=== PATIENT | female | born 1990 | race Caucasian/White ===

== ENCOUNTER 2023-11-08 06:18 | Emergency (ER) | payer OTHER, SELFPAY ==
[2023-11-08 06:40] VITALS: BP 137/79; PULSE 117; RESP 20; TEMP 38; O2SAT 96; BMI 31.6
--- NOTE | 2023-11-08 07:11 | ED.URI ---
HPI - URI/Sore Throat General Chief Complaint: Upper Respiratory Symptoms Stated Complaint: fever, red eyes, coughing Time Seen by Provider: 11/08/23 07:08 Source: patient and family Mode of arrival: ambulatory Limitations: no limitations History of Present Illness HPI Narrative: This is a 33-year-old female presenting to the emergency department nonproductive cough, fatigue, malaise, fevers, chills? x3 days. Chest discomfort w/ cough only described as pressure.? Patient has multiple known sick contacts including children and has also been exposed to RSV.? Patient wanted to come in and get checked for RSV. Denies shortness of breath headache, vision changes, dizziness, weakness, nausea, vomiting, diarrhea, abdominal pain, shortness of breath Related Data Allergies Allergy/AdvReac Type Severity Reaction Status Date / Time sulfamethoxazole Allergy Unknown RASH Verified 11/08/23 06:39 [From BACTRIM] trimethoprim [From BACTRIM] Allergy Unknown RASH Verified 11/08/23 06:39 Review of Systems Review of Systems: Constitutional : No Weight loss, + Fever, + Chills, + Fatigue, + Malaise ENT/Mouth : No sore throat, No Rhinorrhea Eyes: No Eye Pain, No Swelling, No Redness Cardiovascular : + Chest Pain, No SOB, No Dyspnea on Exertion, No Orthopnea, No Edema, No Palpitations Respiratory : + Cough, No Sputum, No Wheezing Gastrointestinal : No Nausea, No Vomiting, No Diarrhea, No Constipation, No abdominal Pain, No Hematochezia, No Melena Genitourinary : No Dysuria, No Urinary Frequency, No Hematuria, Musculoskeletal : No joint pain, + Myalgias, No Joint Swelling Skin : No Skin Lesions, No rash Neuro : No Weakness, No Numbness, No Dizziness, No Headache Psych : No Anxiety/Panic, No Depression All other systems reviewed and are negative Yes all other systems are reviewed and are negative [facility] Past Medical History Attestation statement: The following information was validated with the patient. Source: old records reviewed and nursing notes reviewed Social History Social History Advance Directives: No Advance Directives Information Provided: No Physical Exam Vital Signs: Vital Signs: Last Vital Signs Temp 100.4 F 11/08/23 06:40 Pulse 117 H 11/08/23 06:40 Resp 20 11/08/23 06:40 BP 137/79 11/08/23 06:40 Pulse Ox 96 11/08/23 06:40 O2 Del Method Room Air 11/08/23 06:40 BMI result Body Mass Index 31.6 Patient likely tachycardic secondary to fever from viral illness. Appearance: Alert.? Oriented X3.? No acute distress.? Head: Normocephalic, atraumatic, no step-offs or deformities Eyes: Pupils equal, round and reactive to light.? ENT: Pharynx normal.? Neck: Normal inspection.? Neck supple.? CVS: Rapid rate normal rhythm likely sinus tachycardia with a heart rate of around 110.? Pulses normal.? Respiratory: No respiratory distress.? Breath sounds normal.? Abdomen: Soft and nontender.? Skin: Skin warm and dry.? Normal skin color.? Normal skin turgor.? Extremities: No lower extremity edema.? No calf ttp. 5/5 strength to bilateral upper and lower extremities Neuro: Oriented X 3.? No motor deficit.? No sensory deficit. CN 2-12 intact Course Reevaluation(s) Reevaluation #1: patient positive for in influenza. Symptoms greater than 48 hours. No indication for Tamiflu. Patient to be discharged with supportive measures. Educated patient on diagnosis and treatment plan, answered all question, patient verbalizes understanding. At this time patient will be discharged home, advised to return with new or worsening symptoms. Educated on worrisome signs and symptoms and when to return. At this time I feel comfortable discharge home. Time: 08:08 Medications Administered Discontinued Medications Generic Name Dose Route Start Last Admin Trade Name Shalomq PRN Reason Stop Dose Admin Ibuprofen 600 mg 11/08/23 07:12 11/08/23 07:54 Ibuprofen 600 Mg Tablet PO 11/08/23 07:13 600 mg ONCE ONE Administration Medical Decision Making Medical Decision Making [facility] Narrative: ?33-year-old female presents to the emergency department requesting a RSV testing.? Here with children.? Multiple known sick contacts.? Reporting cough, fatigue, malaise, fevers and chills. ??Physical exam w/ . Rapid rate normal rhythm likely sinus tachycardia with a heart rate of around 110.? Pulses normal.? VS with fever ( will give ibuprofen) ?This is likely viral illness versus viral bronchitis.? Unlikely pulmonary embolism, ACS, acute respiratory distress, pneumonia. tachycardia likely secondary to fever from viral illness. Unlikely arrhythmia this is a rapid regular rhythm likely sinus tachycardia. CP with cough only unlikley acs, pe, disection ??Plan obtain viral testing. Differential Diagnosis Differential Diagnoses: The differential diagnosis associated with the presentation includes ?This is likely viral illness versus viral bronchitis.? Unlikely pulmonary embolism, ACS, acute respiratory distress, pneumonia. CP with cough only unlikley acs, pe, disection Admission/Observation Consideration of admission/observation: Escalation of care including admission/observation considered unlikely Lab Data MDM Lab Attestation statement: I reviewed the patient's lab results. Labs: Lab Results 11/08/23 Range/Units 07:17 Influenza Type A (PCR) POSITIVE A (Negative) Influenza Type B (PCR) NEGATIVE (Negative) RSV RNA Qual (PCR) NEGATIVE (Negative) SARS-CoV-2 RNA (RT-PCR) NEGATIVE (Negative) Independent Interpretation I performed an independent interpretation of an: EKG ( Ventricular rate of 108, [place] normal, QRS normalQT/ QTC normal. No ST elevations or inversions concerning for acute ischemia) Tests considered The following testing was considered but not selected: Breath sounds clear to auscultation. No signs of acute respiratory distress. Stable vital signs. No indication for imaging. Critical Care Time Critical Care Time Critical Care Time: No Discharge Plan Discharge Clinical Impression: Influenza Patient Disposition: Home, Self-Care Instructions: Influenza (ED) Additional Instructions: Take your medications as prescribed. If you were prescribed antibiotics today, it is important that you take your medication to their entirety, do not skip any doses, do not finish them early. Follow-up with your primary care provider this week. Return to the emergency department with new or worsening symptoms. Such as fevers, chills, chest pain, shortness of breath, nausea, vomiting, dizziness, headache, vision changes, lethargy In case of emergency call 911 You can take ibuprofen every 6 hours, Tylenol every 4 as needed for fevers, pain or discomfort Referrals: Lynne Monet MD [Primary Care Provider] - 2 days Stand Alone Forms: Work/School Release
--- OUTSIDE RECORDS SUMMARY | 2023-11-08 07:13 | XMS_ITS | Continuity of Care Document ---
Author Name Unknown Organization [facility] Address [address] [place] [address]- Care Team Providers Care Waste Treatment Operator Name Role Phone Lynne Monet MD Primary Care Physician [phone] [facility] [place] Date(s): 04/21/23 - 04/28/23 [facility] [employer] [employer] [facility] [address], [address] [place] [address]- Attending Physician: Naeem Herrera MD Referring Physician: Joanna Sanabria MD Allergies, Adverse Reactions, Alerts Substance Reaction Severity Status sulfa drugs Active Immunizations Given and Recorded Vaccine Date Status Refusal Reason SARS-CoV-2 (COVID-19) mRNA BNT-162b2 vac 04/23/21 Given SARS-CoV-2 (COVID-19) mRNA BNT-162b2 vac 04/02/21 Given Medications levothyroxine 100 mcg (0.1 mg) oral capsule 1 capsule = 100 mcg, By Mouth, Daily, 0 Refills, Maintenance, 05/01/21 14:20:00 EDT, Partial fill upon patient request if the prescription is for a schedule II opioid drug. Start Date: 05/01/21 Status: Ordered Problem List Condition Confirmation Course Effective Dates Status Health St atus Informant Hypothyroid Confirmed Active Obese class I Confirmed Active Vital Signs Most recent to oldest [Reference Range]: 1 Height 165.00 cm (04/21/23 1:19 PM) Weight 88 kg (04/21/23 1:19 PM) Pulse Rate [55-90 bpm] 73 bpm (04/21/23 1:19 PM) Body Mass Index [18.5-24.99 kg/m2] 32.32 kg/m2 *>HHI* (04/21/23 1:19 PM) Blood Pressure [90-138/55-84 mm Hg] 118/ 79mm Hg (04/21/23 1:19 PM) Dry Weight 88 kg (04/21/23 1:19 PM) Weight Obtained Via Standing scale (04/21/23 1:19 PM) Dry Weight Obtained Via Standing scale (04/21/23 1:19 PM) Social History Social History Type Response Smoking Status Never (less than 100 in lifetime) entered on: 04/21/23 Sex Patient Care team information Care Team Personnel Name: Lynne Monet MD Position: [facility] Physician - Primary Care Member Role: PCP Address: Address: [address] [place] [id number]- Care Team Related Persons Name: MEGAN GONZALEZ Address: home [address] [place] [address] Name: ANJALI CASTILLO Address: home [address] [place] [address]
--- OUTSIDE RECORDS SUMMARY | 2023-11-08 07:13 | XMS_ITS | Continuity of Care Document ---
Author Name Unknown Organization [facility]atan Olivera [facility] Address [address] [place] [address], [address] [place] [address]- Care Team Providers Care Appeals Reviewer Veteran Name Role Phone Daniele RAMOS, Joanna Primary Care Physician [place] [facility] [place](s): 05/01/21 - 05/08/21 [facility] [address] [place] [address]- Attending Physician: Nicole Trinidad MD Referring Physician: Maggie Orourke MD Allergies, Adverse Reactions, Alerts Substance Reaction Severity Status NKA Active Immunizations Given and Recorded Vaccine Date [...] Date: 05/01/21 Status: Ordered Problem List Condition Effective Dates Status Health Status Inform ant Hypothyroid(Confirmed) Active Procedures Procedure Date Related Diagnosis Body Site Status laparoscopic Cholecystectomy Completed Vital Signs Most recent to oldest [Reference Range]: 1 Height 165.00 cm (05/01/21 2:19 PM) Weight 85.4 kg (05/01/21 2:19 PM) Body Mass Index [18.5-24.99] 31.37 *>HHI* (05/01/21 2:19 PM) Blood Pressure [90-138/55-84 mm Hg] 119/ 80mm Hg (05/01/21 2:19 PM) Blood pressure sites Arm, right (05/01/21 2:19 PM) Weight Obtained Via Standing scale (05/01/21 2:19 PM) Social History Social History Type Response Smoking Status Never (less than 100 in lifetime) entered on: 05/01/21 Sex
--- OUTSIDE RECORDS SUMMARY | 2023-11-08 07:13 | XMS_ITS | Continuity of Care Document ---
Author Name Unknown Organization [facility] Address [address], [address] [place] [address]- Care Team Providers Care Supervisor Painting Shipyard Name Role Phone Daniele RAMOS, Joanna Primary Care Physician [place] [facility] [place] 05/31/21 [facility] [address] [place] [address]- Attending Physician: Nikia Ramos Admitting Physician: Nikia Ramos Referring Physician: AdmtrNikia Allergies, Adverse Reactions, Alerts Substance Reaction Severity [...] Status Health Status Inform ant Hypothyroid(Confirmed) Active Social History Social History Type Response Smoking Status Never (less than 100 in lifetime) entered on: 05/01/21 Sex
--- OUTSIDE RECORDS SUMMARY | 2023-11-08 07:13 | XMS_ITS | Continuity of Care Document ---
Author Name Unknown Organization [facility] Prietojonatan Olivera [facility] Address [address] [place] [address], [address] [place] [address]- Care Team Providers Care Ordained Minister Name Role Phone Lynne Monet MD Primary Care Physician [phone] Encounter [facility] [place] Date(s): 09/22/23 - 09/29/23 [facility] [address] [place] [address]- Attending Physician: Naeem Herrera MD Referring Physician: Lynne Monet MD Allergies, Adverse Reactions, Alerts Substance Reaction Severity Status sulfa drugs rash Active shellfish mouth tingling, tongue swelling Active Immunizations Given and Recorded Vaccine Date [...] Confirmed Active Obese class I Confirmed Active Procedures Procedure Date Related Diagnosis Body Site Status Laparoscopic bilateral salpingectomy 09/06/23 Completed Vital Signs Most recent to oldest [Reference Range]: 1 Height 165 cm (09/22/23 1:08 PM) Weight 90.9 kg (09/22/23 1:08 PM) Pulse Rate [55-90 bpm] 82 bpm (09/22/23 1:08 PM) Body Mass Index [18.5-24.99 kg/m2] 33.39 kg/m2 *>HHI* (09/22/23 1:08 PM) Blood Pressure [90-138/55-84 mm Hg] 120/ 76mm Hg (09/22/23 1:08 PM) Blood pressure sites Arm, right (09/22/23 1:08 PM) Dry Weight 90.9 kg (09/22/23 1:08 PM) Weight Obtained Via Standing scale (09/22/23 1:08 PM) Dry Weight Obtained Via Standing scale (09/22/23 1:08 PM) Social History Social History Type Response Smoking Status Never (less than 100 in lifetime) entered on: 04/21/23 Sex Patient Care team information Care Team Personnel Name: Lynne Monet MD Position: [facility] Physician - Primary Care Member Role: PCP Address: Address: [address] [place] [id number]- Care Team Related Persons Name: MEGAN GONZALEZ Address: [address] [place] [address] Name: ANJALI CASTILLO Address: home [address] [place] [address]
--- OUTSIDE RECORDS SUMMARY | 2023-11-08 07:13 | XMS_ITS | Continuity of Care Document ---
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 Name Role Phone Lynne Monet MD Primary Care Physician Encounter [facility] Date(s): 09/06/23 - 09/06/[address] [id number] Discharge Disposition: A-D/C Home Attending Physician: Naeem Herrera MD Admitting Physician: Naeem Herrera MD Referring Physician: Naeem Herrera MD Allergies, Adverse Reactions, Alerts Substance Reaction Severity Status sulfa drugs rash Active shellfish mouth tingling, tongue swelling Active Immunizations Given and Recorded Vaccine Date Status Refusal Reason SARS-CoV-2 (COVID-19) mRNA BNT-162b2 vac 04/23/21 Given SARS-CoV-2 (COVID-19) mRNA BNT-162b2 vac 04/02/21 Given Medications acetaminophen 325 mg oral capsule 2 capsule = 650 mg, By Mouth, Every 4 hours, PRN as needed for pain, for 10 days, # 90 capsule, 0 Refills, Acute 09/16/23 10:10:00 EDT, 09/06/23 10:10:00 EDT, Capsule, [id number], Partial fill upon patient request if the prescription is for a... Start Date: 09/06/23 Stop Date: 09/16/23 Status: Ordered acetaminophen 325 mg oral tablet 650 mg, 2, tablet, By Mouth, Every 6 hours, PRN, # 50 tablet, Refills 1, Tot. Refills 1, Maintenance, Pain , Mild, 09/06/23 8:51:00 EDT, Route to Pharmacy Electronically, [id number], Partial fill upon patient request if the prescription is for... Start Date: 09/06/23 Status: Ordered ibuprofen 600 mg oral tablet 600 mg, 1, tablet, By Mouth, Every 6 hours, PRN, # 40 tablet, Refills 1, Tot. Refills 1, Maintenance, Pain , Mild, 09/06/23 8:51:00 EDT, Route to Pharmacy Electronically, [id number], Partial fill upon patient request if the prescription is for... Start Date: 09/06/23 Status: Ordered ibuprofen 600 mg oral tablet 600 mg, 1, tablet, By Mouth, 4 times a day, PRN, for 7 days, # 40 tablet, Refills 0, Tot. Refills 0, Acute 09/13/23 10:10:00 EDT, for pain, 09/06/23 10:10:00 EDT, Route to Pharmacy Electronically, [facility] #[id number], Partial fill upon patient request... Start Date: 09/06/23 Stop Date: 09/13/23 Status: Ordered levothyroxine 100 mcg (0.1 mg) oral capsule 1 capsule = 100 mcg, By Mouth, Daily, 0 Refills, Maintenance, 05/01/21 14:20:00 EDT, Partial fill upon patient request if the prescription is for a schedule II opioid drug. Start Date: 05/01/21 Status: Ordered oxyCODONE 5 mg oral tablet 5 mg, 1, tablet, By Mouth, Every 6 hours, PRN, # 10 tablet, Refills 0, Tot. Refills 0, Acute 10/14/23 12:00:00 EST, Pain , Moderate, 09/06/23 8:52:00 EDT, Route to Pharmacy Electronically, [facility] #[id number], Partial fill upon patient request if the p... Start Date: 09/06/23 Stop Date: 10/14/23 Status: Ordered oxyCODONE 5 mg oral tablet 5 mg, 1, tablet, By Mouth, Every 6 hours, PRN, for 7 days, # 10 tablet, Refills 0, Tot. Refills 0, Acute 09/13/23 10:10:00 EDT, as needed for pain, 09/06/23 10:10:00 EDT, Route to Pharmacy Electronically, [facility] #[id number], Partial fill upon patient... Start Date: 09/06/23 Stop Date: 09/13/23 Status: Ordered Problem List Condition Confirmation Course Effective Dates Status Health St atus Informant Hypothyroid Confirmed Active Obese class I Confirmed Active Vital Signs Most recent to oldest [Reference Range]: 1 2 3 Height 165 cm (09/06/23 8:06 AM) 165 cm (09/02/23 2:40 PM) Weight 90.3 kg (09/06/23 8:06 AM) 88.5 kg (09/02/23 2:40 PM) Oxygen Saturation [94-100 %] 100 % (09/06/23 11:00 AM) 100 % (09/06/23 10:45 AM) 100 % (09/06/23 10:30 AM) Pulse Rate [55-90 bpm] 68 bpm (09/06/23 8:06 AM) Body Mass Index [18.5-24.99 kg/m2] 33.17 kg/m2 *>HHI* (09/06/23 8:06 AM) 32.51 kg/m2 *>HHI* (09/02/23 2:40 PM) Blood Pressure [90-138/55-84 mm Hg] 119/84mm Hg (09/06/23 11:00 AM) 116/82mm Hg (09/06/23 10:45 AM) 117/73mm Hg (09/06/23 10:15 AM) Respiratory Rate [16-30 br/min] 15 br/min *L* (09/06/23 11:00 AM) 13 br/min *L* (09/06/23 10:45 AM) 22 br/min (09/06/23 10:15 AM) Temperature [96.8-100.4 DegF] 97.1 DegF (09/06/23 11:15 AM) 97.5 DegF (09/06/23 10:15 AM) 98.1 DegF (09/06/23 8:06 AM) Liters per Minute 4 L/min (09/06/23 10:30 AM) 6 L/min (09/06/23 10:15 AM) Mode of Delivery (Oxygen) Room air (09/06/23 11:15 AM) Room air (09/06/23 11:00 AM) Room air (09/06/23 10:45 AM) Blood pressure sites Arm, left (09/06/23 10:45 AM) Arm, left (09/06/23 10:15 AM) Arm, left (09/06/23 8:06 AM) Temperature Route Temporal (09/06/23 11:15 AM) Temporal (09/06/23 10:15 AM) Temporal (09/06/23 8:06 AM) Dry Weight 90.3 kg (09/06/23 8:06 AM) 88.5 kg (09/02/23 2:40 PM) Weight Obtained Via Standing scale (09/06/23 8:06 AM) Patient/family stated (09/02/23 2:40 PM) Dry Weight Obtained Via Standing scale (09/06/23 8:06 AM) Patient/family stated (09/02/23 2:40 PM) Social History Social History Type Response Smoking Status Never (less than 100 in lifetime) entered on: 04/21/23 Sex Note * Alycia Carrero RN: PERFORM Event Display: Discharge/Transfer Note Hospital Authored Date: [id number] Nursing Discharge Note Entered On: 09/06/2023 11:24 EDT Performed On: 09/06/2023 11:23 EDT by Alycia Carrero RN Nursing Discharge Note 2 Discharge Time : 09/06/2023 11:20 EDT Discharge Level of Care at Discharge : Home/Usp/Foster Care Patient Left Unit Via : Wheelchair Patient Accompanied Off Unit with : Significant other DC Instructions Provided & Signed by Pt : Yes Patient Understands D/C Instructions : Yes Patient Instructions Discharge Signed : Yes Did Pt have Specialty Bed or Wound Vac : No Alycia Carrero RN - 09/06/2023 11:23 EDT * Alycia Carrero RN: PERFORM Event Display: Patient Education/Instruction Authored Date: [id number] Surgery Adult Discharge Instructions [address] [address] Name: MARQUEZ GONZALEZ : 1990?? Visit: 09/06/2023 07:38?? Current Date: 09/06/2023 10:54 ?? Account: [id number]?? Surgery Discharge Instructions We would like to thank you for allowing us to assist you with your healthcare needs. The following includes patient education materials and information regarding your injury/illness. Our entire staffstrives to provide an excellent experience for our patients and their families. PLEASE ENSURE YOU FOLLOW-UP PER THE INSTRUCTIONS BELOW! ?? YOUR OPINION IS IMPORTANT TO US! Please complete the survey you may receive by mail or email. Your feedback will be used to make improvements to the healthcare experiences of our patients and their families. Surveys are administered by [email or web address] ?? If further treatment with your primary care physician or another doctor is recommended, it is important for you to keep the appointment. Call your primary care physician or return to the Emergency Department immediately if your condition worsens, fails to improve, or new symptoms develop. If you need to find a doctor, you can call [facility] [employer] for a referral at [phone] or toll free at [phone]) or log in to [email or web address].. ?? [facility], in keeping with [facility] guidance, no longer requires face masks for staff, patientsor visitors in most situations. Similiar to time spent indoors at other locations, there is the chance that you were exposed to repiratory viruses during your time with us (such as flu or COVID-19). If you develop symptoms concerning for a viral respiratory infection, please seek testing (and treatment if indicated) from your medical provider or home test kit. ?? You can view and manage your care through the patient portal or by using a health care eduard of your choosing. [employer] is a website that allows you to securely view your medical information including your hospital discharge summary, office visit summaries, medications and follow-up visits. You can also request appointments, renew medications, and request access to your medical information using a health care eduard of your choosing, or just ask a question. You are entitled to know the individuals who participated in your treatment. This information is available within your medical record and will be provided upon your request. You can enroll at [email or web address] or register d uring your next office visit. You have been discharged from [facility], Patient Care Unit: [facility]??. If you have any questions regarding these instructions after you leave, please call us and we will be happy to assist you. [facility] Your Care Team Attending Physician Naeem Herrera MD?? Discharging Providers Constantino Ramsey MD Reason for Admission UNDESIRED FERTILITY CS DS Primary Care Provider Lynne Monet MD? Advance Directive Health Care Proxy on File No What to do next Instructions From Your Doctor ?? Orders? 09/06/23 10:09:00 EDT?? Instructions from your Care Team See??attached sheet for instruction ?? Next dose of Tylenol is due at 2 pm ?? Next dose of??Ibuprofen is due at 3 pm ? Scheduled Follow-Up Appointments 2022 1:00 PM EST ?? With: Naeem Herrera MD Where: [facility] [employer] [address] [place] [id number]- Status: Pending You Need to Schedule the Following Appointments Follow Up with??Naeem Herrera MD When:??Within 1 to 2 weeks Where: [address] [place], [place] [address]s [facility] [place] [address]- Discharge Medications MARQUEZ GONZALEZ :1990 Visit Date:09/06/2023 Medications: Please continue your medications until treatment is completed or stopped by your provider. You may resume your daily prescription medications. Discuss any questions related to medications with your provider. What How Much When Instructions Next Dose New Acetaminophen (acetaminophen 325 mg oral capsule) 2 capsule Oral Every 4 hours as needed for as needed for pain Duration: 10 Days Pickup at [facility]/pharmacy #[id number] New Acetaminophen (acetaminophen 325 mg oral tablet) 2 tab(s) Oral Every 6 hours as needed for Pain , Mild Refills: 1 Pickup at [facility]/pharmacy #[id number] 2 pm New Ibuprofen (ibuprofen 600 mg oral tablet) 1 tab(s) Oral 4 times a day as needed for for pain Duration: 7 Days Pickup at [facility]/pharmacy #2070 New Ibuprofen (ibuprofen 600 mg oral tablet) 1 tab(s) Oral Every 6 hours as needed for Pain , Mild Refills: 1 Pickup at [facility]/pharmacy #2070 3 pm New Oxycodone (oxyCODONE 5 mg oral tablet) 1 tab(s) Oral Every 6 hours as needed for Pain , Moderate Pickup at [facility]/pharmacy #2070 New Oxycodone (oxyCODONE 5 mg oral tablet) 1 tab(s) Oral Every 6 hours as needed for as needed for pain Duration: 7 Days Pickup at [facility]/pharmacy #2070 Unchanged Levothyroxine (levothyroxine 100 mcg (0.1 mg) oral capsule) 1 capsule Oral Daily Pharmacy Information [facility]/pharmacy #[id number]: [address] [place], [place] [id number] [phone] Allergies (NKA means No Known Allergies) shellfish??(mouth tingling, tongue swelling) sulfa drugs??(rash) Education Materials Below is the list of Educational Leaflet Providered with your Discharge Instructions. Valuables and Belongings I fully understand and agree that [facility] accepts no responsibility for all my personal property including clothing, toilet articles, radios, jewelry, dentures, hearing aids, rings, money, or any other property that is in my possession or is brought to me after admission. I understand certain valuables may be placed in a hospital safe for a short period of time. I understand that the hospital is not liable for loss or damage due to accident, fire, or other natural occurrence while said property is in the safe. I accept full responsibility for any personal property that I keep with me, and will not hold the hospital responsible in case of loss or disappearance. I acknowledge that i have been encouraged to send valuables and belongings home. ?? Review of Valuable and Belonging List: With patient Date for Pt to Sign Valuables/Belongings: 09/06/23 08:06:00 ?? Valuables & Belongings ?? Clothes Electronic devices Jewelry Monetary Items Personal devices Miscellaneous Medications (Valuables) Valuables at Bedside Jacket, Pants, Shirt, Shoes, Undergarments Cell phone ?? Purse Glasses ? Valuables Sent Home ? Valuables Sent to Security ? Other Discharge Information ? Pulmonary Rehab Status?? Pulmonary Rehab Discharge Status?? Respiratory Rate: 22 br/min ? Common Emergency Awareness Tips IS IT A STROKE? Act FAST and Check for these signs: FACE Does the face look uneven? ARM Does one arm drift down? SPEECH Does their speech sound strange? TIME Call at any sign of stroke ?? Heart Attack Signs Chest discomfort: Most heart attacks involve discomfort in the center of the chest and lasts more than a few minutes, or goes away and comes back. It can feel like uncomfortable pressure, squeezing, fullness or pain. Discomfort in upper body: Symptoms can include pain or discomfort in one or both arms, back, neck, jaw or stomach. Shortness of breath: With or without discomfort. Other signs: Breaking out in a cold sweat, nausea, or lightheaded. Remember, MINUTES DO MATTER. If you experience any of these heart attack warning signs, call to get immediate medical attention! ?? Smoking can increase your chances of developing chronic health problems and can cause harmful effects to other family members in your house. If you smoke, you are strongly encouraged to quit. Please call [facility] [employer] [facility] at [phone] or [phone]) or log in to [email or web address] for referrals to smoking cessation programs. ?? The National Suicide Prevention Hotline is available 06/06 if you or someone you know needs to find a reason to keep living. By calling 8-410-242-[employer] (0042) you'll be connected to a skilled, trained counselor at a crisis center in your area. SURGERY DISCHARGE INSTRUCTIONS SIGNATURE MARQUEZ MONTILLA Location:[facility] Registration Date and Time:09/06/2023 07:38 EDT Primary Care Physician: Chiki RAMOS, Lynne Poon, Attending Physician: Sharon RAMOS, Naeem Zurita, I MARQUEZ GONZALEZ, have received the above patient education materials/instructions and have verbalized understanding. If ambulance or transport services are being used I further acknowledge being given a choice of service. ?? If you need to contact me, please call me at this number: . Patient/Joiner Name:DANIELLE GONZALEZ Patient/Joiner Signature: Relationship to Patient:____self Witness Name/Signature:__Ruba Alise Date: 09/06/2023 * Alycia Carrero RN: PERFORM Event Display: Patient Education Leaflets Authored Date: [id number] NSAID Analgesic Schedule ?? 604 NSAID???s Analgesic Schedule ?? Pain is the primary source of illness following your procedure and can include dehydration, difficulty and painful swallowing, and weight loss. These symptoms can lead to increased post-operative visits and hospital readmission. The best way to control pain is to take pain medications regularly. Your doctor has recommended both Ibuprofen and Acetaminophen (generic/store brands are okay, too). These can be picked up over the counter at your pharmacy of choice. Follow the instructions on the bottle to determine the proper dosage to give. The simplest way to take these medications it to rotate the two at 3-hour intervals. Here is a sample diagram. The time you take your medications may vary from this example. Do not give Ibuprofen more than every 6 hours or Acetaminophen every 4 hours. Do not give Acetaminophen if your doctor has given you a prescription that contains Acetaminophen. ? * Alycia Carrero RN: PERFORM Event Display: Patient Education Leaflets Authored Date: [id number] Surgery Medical Daystay Surgical Overnight Discharge Instructions ?? 295 Medical Daystay/Surgical Overnight Discharge Instructions ? Since your coordination and judgment may be altered by medication and/or anesthesia, a responsible adult must drive you home from the hospital. ? If you have received medication for pain or sedation while under our care, you should not drive, operate machinery, drink alcohol, or sign any legal documents for 24 hours.?? You should have someone with you at home tonight. ? Remain at home the day of discharge.?? You may be up and about unless otherwise instructed by your physician. ? You may resume your daily prescription medication schedule.?? Any depressant medication should be avoided for 24 hours unless otherwise instructed by your surgeon or anesthesiologist. ? Call your physician for a follow-up appointment.? If you experience unusual or severe pain not relied by your pain medication, excessive bleedingor drainage, persistent nausea and vomiting, excessive swelling or redness, foul odor from incisionsite or fever over 100.6F, you need to call your physician. ? A follow-up phone call by a nurse will be made the day after your procedure.?? If you have stayed with us over night, you will not be receiving a follow-up phone call. ? Nausea and vomiting are a common side effect of prescription pain medication.?? We recommend that pills are not taken on an empty stomach.?? While taking any prescription pain medication you should not drive or drink alcohol. ? * Alycia Carrero RN: PERFORM Event Display: Patient Education Leaflets Authored Date: [id number] Surgery Medical Daystay Surgical Overnight Discharge Instructions ?? 295 Medical Daystay/Surgical Overnight Discharge Instructions ? Since your coordination and judgment may be altered by medication and/or anesthesia, a responsible adult must drive you home from the hospital. ? If you have received medication for pain or sedation while under our care, you should not drive, operate machinery, drink alcohol, or sign any legal documents for 24 hours.?? You should have someone with you at home tonight. ? Remain at home the day of discharge.?? You may be up and about unless otherwise instructed by your physician. ? You may resume your daily prescription medication schedule.?? Any depressant medication should be avoided for 24 hours unless otherwise instructed by your surgeon or anesthesiologist. ? Call your physician for a follow-up appointment.? If you experience unusual or severe pain not relied by your pain medication, excessive bleedingor drainage, persistent nausea and vomiting, excessive swelling or redness, foul odor from incisionsite or fever over 100.6F, you need to call your physician. ? A follow-up phone call by a nurse will be made the day after your procedure.?? If you have stayed with us over night, you will not be receiving a follow-up phone call. ? Nausea and vomiting are a common side effect of prescription pain medication.?? We recommend that pills are not taken on an empty stomach.?? While taking any prescription pain medication you should not drive or drink alcohol. ? Patient Care team information Care Team Personnel Name: Lynne Monet MD Position: S Physician - Primary Care Member Role: PCP Address: Address: [address] [place] [id number] Care Team Related Persons Name: MEGAN GONZALEZ Address: home [address] [place] [address] Name: ANJALI CASTILLO Address: home [address] [place] [address]
--- OUTSIDE RECORDS SUMMARY | 2023-11-08 07:13 | XMS_ITS | Continuity of Care Document ---
Author Name Unknown Organization [facility] Prietojonatan Olivera neROIs [facility] Address [address] [place] [address]- Care Team Providers Care Global Regulatory Lead Name Role Phone Lynne Monet MD Primary Care Physician [phone] Encounter [facility] Date(s): 09/22/23 - 10/22/23 [facility] Wiergatejonatan GallardoeROIs [facility] [address] [place] [address]- Attending Physician: Nikia Ramos Admitting Physician: Nikia [...] Confirmed Active Obese class I Confirmed Active Social History Social History Type Response Smoking Status Never (less than 100 in lifetime) entered on: 04/21/23 Sex Patient Care team information Care Team Personnel Name: Lynne Monet MD Position: S Physician - Primary Care Member Role: PCP Address: Address: [address] [place] [address]- Care Team Related Persons Name: MEGAN GONZALEZ Address: home [address] [place] [address] Name: ANJALI CASTILLO Address: home [address] [place] [address]
--- NOTE | 2023-11-08 07:26 | ECG_ITS ---
Test Reason : chest pain Blood Pressure : / mmHG Vent. Rate : 108 BPM Atrial Rate : 108 BPM P-R Int : 128 ms QRS Dur : 082 ms QT Int : 304 ms P-R-T Axes : 054 044 027 degrees QTc Int : 407 ms Sinus tachycardia Nonspecific T wave abnormality Abnormal ECG No previous ECGs available Referred By: Willard Yeboah Electronically Signed By:MALIA HORAN
[2023-11-08] MEDS: Ibuprofen 600 MG TABLET PO (07:54)
[2023-11-08 08:04] LABS: Influenza A PCR POSITIVE (Negative); Influenza B PCR NEGATIVE (Negative); Resp Syncy Virus RNA Qual PCR NEGATIVE (Negative); SARS COV2 PCR INHOUSE NEGATIVE (Negative)
== END 2023-11-08 08:37 | disposition home or self-care (01) ==
PROVIDERS: Physician Assistant; Emergency Provider Emergency Medicine; PCP Internal Medicine
DX: J10.1 Influenza due to other identified influenza virus with other respiratory manifestations (principal); R07.89 Other chest pain; R00.0 Tachycardia, unspecified; Z20.822 Contact with and (suspected) exposure to COVID-19; Z20.828 Contact with and (suspected) exposure to other viral communicable diseases
CPT/HCPCS: 0241U; 93005; 99283; 99284

== ENCOUNTER → 2023-11-08 07:26 | Outpatient (BNV) | payer OTHER, SELFPAY | PROVIDERS: Emergency Provider Emergency Medicine; PCP Internal Medicine; Visit Provider Internal Medicine | DX: R00.0 Tachycardia, unspecified (principal) | CPT/HCPCS: 93010 ==

== ENCOUNTER 2024-06-19 14:44 | Outpatient (REF) | payer OTHER, SELFPAY ==
[2024-06-19 15:06] LABS: MANUAL DIFF FLAG NO
[2024-06-19 15:19] LABS: Basophils Percent Auto 0.4 % (0-2); Eosinophils Percent Auto 0.5 % (0-4); Hematocrit 39.6 % (37.0-47.0); Hemoglobin 13.7 g/dl (12.0-16.0); Imm Gran Abs Auto 0.01 X10*3/uL (0.00-0.03); Imm Gran Pct Auto 0.2 % (0.0-0.4); Lymphocytes Absolute Auto 2.4 X10*3/uL (1.2-4.9); Lymphocytes Percent Auto 42.5 % (20-40); Mean Corpuscular HGB Conc 34.6 g/dl (31.0-35.0); Mean Corpuscular Hemoglobin 31.9 pg (27.0-33.0); Mean Corpuscular Volume 92.1 fL (80.0-98.0); Mean Platelet Volume 10.2 fL (9.4-12.3); Monocytes Absolute Auto 0.4 X10*3/uL (0.1-1.2); Monocytes Percent Auto 7.7 % (2-11); Neutrophils Absolute Auto 2.7 x10*3/uL (2.0-8.3); Neutrophils Percent Auto 48.7 % (45-73); Platelet Count 249 X10*3/uL (160-400); Red Cell Distribution Width 11.6 % (11.0-16.0); White Blood Count 5.6 X10*3/uL (4.8-10.8)
[2024-06-19 15:58] LABS: Alanine Aminotransferase 15 U/L (0-31); Albumin Level 4.2 g/dL (3.5-5.0); Alkaline Phosphatase 110 U/L (39-117); Anion Gap 8 (12-20); Aspartate Amino Transferase 18 U/L (5-31); Bilirubin Total 0.3 mg/dL (0.0-1.0); Blood Urea Nitrogen 11 mg/dL (9-16); Carbon Dioxide 27 mmol/L (22-29); Chloride 108 mmol/L (96-108); Estimated Glomerular Filt Rate > 60; Glucose Random 91 mg/dL (60-115); Potassium 3.4 mmol/L (3.3-5.1); Sodium 140 mmol/L (135-145); Total Protein 7.3 g/dL (6.5-8.0)
[2024-06-19 16:13] LABS: Thyroid Stimulating Hormone 1.81 uIU/mL (0.32-4.0)
== END 2024-06-19 14:45 | disposition home or self-care (01) ==
LOC: HO.LAB 14:44
PROVIDERS: PCP Physician Assistant; Visit Provider Physician Assistant
DX: Z00.00 Encounter for general adult medical examination without abnormal findings (principal); E03.8 Other specified hypothyroidism; E06.3 Autoimmune thyroiditis
CPT/HCPCS: 36415; 80053; 84443; 85025